=== PATIENT | female | born 2000 | race Caucasian/White ===

== ENCOUNTER 2022-08-07 17:58 | Emergency (ER) | payer OTHER, MEDICAID, SELFPAY ==
[2022-08-07 18:09] VITALS: BP 110/57; PULSE 95; RESP 18; TEMP 36.6; O2SAT 97; BMI 25.8
[2022-08-07 20:12] VITALS: BP 102/58; PULSE 76; O2SAT 98
[2022-08-07 20:54] LABS: Influenza A - CEPHEID Flu A NEGATIVE (NEGATIVE); Influenza B - CEPHEID Flu B NEGATIVE (NEGATIVE); Respiratory Syncytial Virus Negative (Negative)
[2022-08-07 20:57] LABS: COVID-19 CEPHEID 4-PLEX PCR Negative (Negative)
== END 2022-08-07 20:43 | disposition left against medical advice (07) ==
PROVIDERS: Emergency Provider Emergency Medicine
DX: R05.9 Cough, unspecified (principal); Z20.822 Contact with and (suspected) exposure to COVID-19
CPT/HCPCS: 0241U; 81003; 81025; 99282

== ENCOUNTER 2022-09-09 18:35 | Emergency (ER) | payer OTHER, MEDICAID, SELFPAY ==
[2022-09-09] VITALS (24 sets, daily range): BP systolic 70–117; BP diastolic 35–63; PULSE 72–110; RESP 16–23; TEMP 36.1; O2SAT 96–99; BMI 26.6
--- NOTE | 2022-09-09 19:19 | DI.US.S_ITS ---
PROCEDURE: US OB LIMITED INDICATIONS: POST FALL OUTSIDE/PRIOR DATING DATA: Last menstrual period (LMP): Unknown. The calculations are made using the patient reported MELANI of 01/09/2023. TECHNIQUE: Real-time scanning was performed of the fetus for biophysical profile, with image documentation. Color and pulse Doppler interrogation was also performed of the umbilical artery near its insertion into the placenta. COMPARISON: [facility], US, US OB < 14 WEEKS + OB TRANSVAG, 06/17/2022, 14:59. FINDINGS: General: A single living intrauterine gestation is present. Presentation: Vertex. Placenta: Placental position is posterior , without previa. No periplacental fluid collections to suggest abruption. Amniotic fluid index: 15.4 cm, normal range is 5-24 cm. Single deepest vertical pocket is 4.8 cm. heart rate: 152 beats per minute. Maternal cervical canal: 3.8 cm long. Normal lower limit is 2.5 cm. Estimated gestational age from initial scan: 22 weeks 4 days IMPRESSION: 1. Single living intrauterine demonstrated in vertex presentation. 2. No periplacental fluid collections to suggest abruption. We strive to produce accurate, complete, and clear reports of imaging services. To assist us in improving patient care, this report was composed using standard report templates and voice recognition software. Therefore, it may contain abnormal punctuation, insertions and/or omissions. Occasional wrong-word or sound-alike substitutions may occur. Though we review the report and make efforts to correct it, we do recommend that the report be read carefully in proper context to recognize any text inaccuracies. Dictated by: Medardo Godinez M.D. on 09/10/2022 at 0:17 Approved by: Medardo Godinez M.D. on 09/10/2022 at 0:29
[2022-09-09 19:58] LABS: Add Manual Diff / Slide Review NO; Basophils Absolute Auto 0 /uL (0-100); Basophils Percent Auto 0.4 % (0-2); Eosinophils Absolute Auto 100 /uL (0-450); Eosinophils Percent Auto 1.1 % (2-4); Hematocrit 36.2 % (36-46); Hemoglobin 12.3 g/dL (12.0-16.0); Lymphocytes Absolute Auto 3400 /uL (1100-4500); Mean Corpuscular Hemoglobin 31.5 PG (26-34); Mean Corpuscular Volume 92.6 fL (80-100); Monocytes Absolute Auto 900 /uL (0-900); Monocytes Percent Auto 7.1 % (3-14); Neutrophils Absolute Auto 8100 /uL (1500-7000); Neutrophils Percent Auto 64.4 % (50-75); Platelet Count 337 X10^3/uL (150-400); Red Blood Cell Count 3.91 X10^6/uL (4.0-5.2); Red Cell Distribution Width 14.8 % (11.6-14.8); White Blood Cell Count 12.6 X10^3/uL (4.5-11.0)
[2022-09-09 20:09] LABS: BUN Creatinine Ratio 17.1 (6-22); Blood Urea Nitrogen 7 mg/dL (7-17); Calcium 8.8 mg/dL (8.4-10.2); Carbon Dioxide 21 mmol/L (22-32); Chloride 105 mmol/L (98-107); Estimated Glomerular Filt Rate > 60 mL/min (>60); Glucose 87 mg/dL (70-100); HEMOLYSIS < 15 (0-50); Potassium 3.4 mmol/L (3.4-5.1); Sodium 135 mmol/L (137-145)
[2022-09-09 20:15] LABS: Pregnancy Test Serum,Qual Positive (Negative)
--- NOTE | 2022-09-09 20:21 | PC.NURSE ---
Pt reports coughing up blood intermittently with scheduled appointment with a lung doctor tomorrow.
--- NOTE | 2022-09-09 20:21 | PC.NURSE ---
Patient placed on continuous cardiac monitoring.
--- NOTE | 2022-09-09 20:45 | ED_ITS ---
HPI - Head Injury General Chief complaint: Head Injury Stated complaint: fainted, , vaginal bleeding Time Seen by Provider: 09/09/22 20:33 Source: patient Mode of arrival: Ambulatory Limitations: no limitations History of Present Illness HPI Narrative: Patient is a 21-year-old female. Is 22 weeks . She states that when she was in the shower she fainted. She stated that she was having some cramping afterwards but that has improved. She stated that she has fainted in the past. Prior to the episode today she was not having chest pain or shortness of breath or lightheadedness. She reports no neck pain. No extremity pain. She does have a bump to her head and has headache. She stated that she was told by her OB doctor not to take hot showers. She is unsure why she was told this although today she was taking a hot shower when this event happened. Related Data Allergies Allergy/AdvReac Type Severity Reaction Status Date / Time Penicillins Allergy Verified 08/07/22 18:08 pineapple Allergy Redness of Verified 08/07/22 18:08 Skin Review of Systems Review of Systems ROS Unobtainable: All systems reviewed & are unremarkable except as noted in HPI and below Patient History Social History Smoking Status: Never smoker Smoking Status: Never smoker alcohol intake frequency: 0-2 drinks per day Substance Use Type: does not use Exam Initial Vital Signs Initial Vital Signs: Vital Signs Temperature 97 F L 09/09/22 19:37 Pulse Rate 110 H 09/09/22 19:37 Respiratory Rate 18 09/09/22 19:37 Blood Pressure 117/63 09/09/22 19:37 Pulse Oximetry 96 09/09/22 19:37 Oxygen Delivery Method Room Air 09/09/22 19:37 Const General: cooperative and healthy appearing [facility] Head: contusion (Right parietal region.) Resp Effort & Inspection: normal respiratory effort Auscultation: clear to auscultation bilaterally Cardio Rate: regular rate Rhythm: regular rhythm GI Inspection: normal to inspection Back/Spine/Pelvis Cervical Spine: No cervical spinal tenderness Skin General: no rashes or lesions noted Neuro General: patient alert, patient awake and moves all extremities Extrem General: normal to inspection and capillary refill normal Course Orders Ordered: ED Orders 09/09/22 19:19 US OB limited Stat 09/09/22 19:45 Basic Metabolic Panel Stat Complete Blood Count AUTO DIFF Stat Test Serum,Qual Stat 09/09/22 19:57 ABO RH Type Stat 09/09/22 20:06 EKG-12 Lead Stat 09/09/22 20:48 Urine Culture Stat Urine Microscopic Stat Vital Signs Vital signs: Vital Signs - 8 hr 09/09/22 19:37 09/09/22 19:40 09/09/22 20:07 Temperature 97 F L Pulse Rate 110 H 74 88 Respiratory Rate 18 16 16 Blood Pressure 117/63 70/35 L 98/57 L Pulse Oximetry 96 97 Oxygen Delivery Method Room Air Room Air 09/09/22 19:45 09/09/22 19:50 09/09/22 19:55 Temperature Pulse Rate 80 72 80 Respiratory Rate 16 16 18 Blood Pressure 76/41 L 81/51 L 81/41 L Pulse Oximetry 97 97 97 Oxygen Delivery Method Room Air Room Air Room Air 09/09/22 20:00 09/09/22 20:15 09/09/22 20:16 Temperature Pulse Rate 85 81 Respiratory Rate 16 Blood Pressure 93/50 L 108/61 Pulse Oximetry 96 98 Oxygen Delivery Method Room Air 09/09/22 20:16 09/09/22 20:30 09/09/22 20:30 Temperature Pulse Rate 78 76 Respiratory Rate 16 Blood Pressure 99/57 L Pulse Oximetry 99 98 Oxygen Delivery Method 09/09/22 20:32 09/09/22 20:32 09/09/22 20:46 Temperature Pulse Rate 81 Respiratory Rate 23 Blood Pressure 96/58 L 108/60 Pulse Oximetry 98 Oxygen Delivery Method 09/09/22 20:46 09/09/22 21:00 09/09/22 21:00 Temperature Pulse Rate 82 79 Respiratory Rate Blood Pressure 102/58 L Pulse Oximetry 98 97 Oxygen Delivery Method 09/09/22 21:15 09/09/22 21:15 09/09/22 21:30 Temperature Pulse Rate 76 Respiratory Rate Blood Pressure 100/55 L 97/53 L Pulse Oximetry 98 Oxygen Delivery Method 09/09/22 21:30 09/09/22 21:45 09/09/22 21:45 Temperature Pulse Rate 85 86 Respiratory Rate Blood Pressure 101/57 L Pulse Oximetry 98 98 Oxygen Delivery Method 09/09/22 22:00 09/09/22 22:00 09/09/22 22:15 Temperature Pulse Rate 88 Respiratory Rate Blood Pressure 100/57 L 103/59 L Pulse Oximetry 98 Oxygen Delivery Method 09/09/22 22:15 09/09/22 22:30 09/09/22 22:30 Temperature Pulse Rate 85 90 Respiratory Rate Blood Pressure 95/51 L Pulse Oximetry 98 98 Oxygen Delivery Method 09/09/22 22:45 09/09/22 22:45 09/09/22 23:00 Temperature Pulse Rate 78 Respiratory Rate 17 Blood Pressure 97/53 L 94/51 L Pulse Oximetry 99 Oxygen Delivery Method 09/09/22 23:00 09/09/22 23:15 09/09/22 23:15 Temperature Pulse Rate 79 83 Respiratory Rate 21 16 Blood Pressure 97/52 L Pulse Oximetry 97 96 Oxygen Delivery Method MDM - Head Injury Lab Data Attestation: I reviewed the patient's lab results. 09/09/22 19:45 09/09/22 19:45 Labs: Lab Results 09/09/22 09/09/22 09/09/22 Range/Units 19:45 19:45 19:45 WBC 12.6 H (4.5-11.0) X10^3/uL RBC 3.91 L (4.0-5.2) X10^6/uL Hgb 12.3 (12.0-16.0) g/dL Hct 36.2 (36-46) % MCV 92.6 (80-100) fL MCH 31.5 (26-34) PG MCHC 34.0 (30-36) % RDW 14.8 (11.6-14.8) % Plt Count 337 (150-400) X10^3/uL Neut % (Auto) 64.4 (50-75) % Lymph % (Auto) 27.0 (25-40) % [place] % (Auto) 7.1 (3-14) % Eos % (Auto) 1.1 L (2-4) % Baso % (Auto) 0.4 (0-2) % Neut # (Auto) 8100 H (8346-2994) /uL Lymph # (Auto) 3400 (3897-3454) /uL [place] # (Auto) 900 (0-900) /uL Eos # (Auto) 100 (0-450) /uL Baso # (Auto) 0 (0-100) /uL Sodium 135 L (137-145) mmol/L Potassium 3.4 (3.4-5.1) mmol/L Chloride 105 (98-107) mmol/L Carbon Dioxide 21 L (22-32) mmol/L BUN 7 (7-17) mg/dL Creatinine 0.41 L (0.52-1.04) mg/dL Estimated GFR > 60 (>60) mL/min BUN/Creatinine Ratio 17.1 (6-22) Glucose 87 (70-100) mg/dL Calcium 8.8 (8.4-10.2) mg/dL Serum , Qual Positive H (Negative) Urine RBC (0-5/HPF) Urine WBC (0-5/HPF) Ur Squamous Epith Cells (0-5/HPF) Amorphous Sediment Urine Bacteria (None) Blood Type 09/09/22 09/09/22 Range/Units 19:57 20:48 WBC (4.5-11.0) X10^3/uL RBC (4.0-5.2) X10^6/uL Hgb (12.0-16.0) g/dL Hct (36-46) % MCV (80-100) fL MCH (26-34) PG MCHC (30-36) % RDW (11.6-14.8) % Plt Count (150-400) X10^3/uL Neut % (Auto) (50-75) % Lymph % (Auto) (25-40) % [place] % (Auto) (3-14) % Eos % (Auto) (2-4) % Baso % (Auto) (0-2) % Neut # (Auto) (6704-6032) /uL Lymph # (Auto) (9472-4782) /uL Callahan # (Auto) (0-900) /uL Eos # (Auto) (0-450) /uL Baso # (Auto) (0-100) /uL Sodium (137-145) mmol/L Potassium (3.4-5.1) mmol/L Chloride (98-107) mmol/L Carbon Dioxide (22-32) mmol/L BUN (7-17) mg/dL Creatinine (0.52-1.04) mg/dL Estimated GFR (>60) mL/min BUN/Creatinine Ratio (6-22) Glucose (70-100) mg/dL Calcium (8.4-10.2) mg/dL Serum , Qual (Negative) Urine RBC None seen (0-5/HPF) Urine WBC 5-10/hpf H (0-5/HPF) Ur Squamous Epith Cells 5-10 /hpf H (0-5/HPF) Amorphous Sediment 1+ Urine Bacteria Moderate (10-30) H (None) Blood Type O Positive Urine Dip Bedside Urine Glucose Negative Bedside Urine Bilirubin - Negative Bedside Urine Ketone +++ 80 Urine Specific [place] 1.025 Bedside Urine Occult Blood - Negative Bedside Urine pH 6.0 Bedside Urine Protein +/- 15 Bedside Urine Urobilinogen - Negative Bedside Urine Nitrite - Negative Bedside Urine Leukocytes - Negative Esterase Imaging Data US - OB: Radiologist's Impression: PROCEDURE:? US OB LIMITED ? INDICATIONS:? POST FALL ? OUTSIDE/PRIOR DATING DATA:? Last menstrual period (LMP):? Unknown.? The calculations are made using the patient reported MELANI of 01/09/2023.? ? TECHNIQUE:? Real-time scanning was performed of the fetus for biophysical profile, with image documentation.? Color and pulse Doppler interrogation was also performed of the umbilical artery near its insertion into the placenta.? ? COMPARISON:? [facility], , US OB < 14 WEEKS + OB TRANSVAG, 06/17/2022, 14:59. ? FINDINGS:? ? General:? A single living intrauterine gestation is present.? Presentation:? Vertex.? Placenta:? Placental position is posterior , without previa.? No periplacental fluid collections to suggest abruption. Amniotic fluid index:? 15.4 cm, normal range is 5-24 cm.? Single deepest vertical pocket is 4.8 cm. heart rate:? 152 beats per minute.? Maternal cervical canal:? 3.8 cm long.? Normal lower limit is 2.5 cm.? Estimated gestational age from initial scan:? 22 weeks 4 days ? ? ? IMPRESSION:? ? 1. Single living intrauterine demonstrated in vertex presentation. ? 2. No periplacental fluid collections to suggest abruption.? ? We strive to produce accurate, complete, and clear reports of imaging services. To assist us in improving patient care, this report was composed using standard report templates and voice recognition software. Therefore, it may contain abnormal punctuation, insertions and/or omissions. Occasional wrong-word or sound-alike substitutions may occur. Though we review the report and make efforts to correct it, we do recommend that the report be read carefully in proper context to recognize any text inaccuracies. ECG Data Attestation: I personally reviewed and interpreted this ECG as follows: Interpretation: Sinus rhythm Normal axis Normal QRS Normal QTC Nonspecific ST T wave changes MDM Narrative Medical decision making narrative: Labs are unremarkable. EKG is unremarkable. Vital signs are unremarkable. She is alert oriented x3. The cervical spine is cleared by nexus criteria. No indication for head CT given her presentation and also the fact that she is . Ultrasound shows no signs of placental abruption. Has a live intrauterine . Unsure the etiology of the patient's syncope. This does not sound like seizure. Low suspicion for CVA/TIA. She does not have any arrhythmias here on the monitor normal EKG. Labs are unremarkable. Will hold on further workup for now and have her follow-up with her primary doctor and also her OB provider. She was given return precautions. She expressed understanding and agreement. Discharge Plan Departure Patient Disposition: Home Clinical Impression: Syncope, Instructions: DI for Syncope in Adults (Fainting) Activity Restrictions/Additional Instructions: I do recommend that you keep all of your scheduled medical appointments. Contact your primary doctor and also your OB provider for follow-up. Return to emergency department for any new or worsening symptoms. Stand Alone Forms: Patient Portal/API
[2022-09-09 21:16] LABS: Amorphous Sediment Urine 1+; Bacteria Urine Moderate (10-30); RBC Urine None Seen (0-5/HPF); Squamous Epithelial Cell Urine 5-10 /HPF (0-5/HPF); WBC Urine 5-10/HPF (0-5/HPF)
[2022-09-10] VITALS (7 sets, daily range): BP systolic 97–107; BP diastolic 53–59; PULSE 73–89; RESP 16–23; O2SAT 96–98
== END 2022-09-10 01:09 | disposition home or self-care (01) ==
PROVIDERS: Emergency Provider Emergency Medicine
DX: R55 Syncope and collapse (principal); R07.9 Chest pain, unspecified; Z3A.22 22 weeks gestation of pregnancy
CPT/HCPCS: 36415; 76815; 80048; 81003; 81015; 84703; 85025; 86900; 86901; 87086; 93005; 99284